=== PATIENT | female | born 1940 | race Caucasian/White ===

== ENCOUNTER → 2018-03-22 12:57 | Outpatient (CLI) | payer MEDICARE, BC, SELFPAY ==
--- NOTE | 2018-03-22 12:59 | XR_ITS ---
XR DEXA axial skeleton HISTORY: ITS.REASON: screening ORDERING PHYSICIAN: Stone Stokes MD PATIENT AGE: 78 years COMPARISON: 01/03/2016 FINDINGS: The BMD measured at the left femoral neck is 0.807 g/cm squared with a T score of -1.7. This is considered Osteopenic according to the World Health Organization criteria. Fracture risk is Moderate. Treatment is advised. Hip density is decreased by 1.6%. L1 L4 density has a T score of 1.9 and has increased by 3.4% IMPRESSION: Osteopenia with moderate fracture risk. Suggest treatment follow-up exam March 2020
== END ==
PROVIDERS: Family Provider Family Medicine; PCP Family Medicine; Visit Provider Obstetrics & Gynecology
DX: Z78.0 Asymptomatic menopausal state (principal)
CPT/HCPCS: 77080

== ENCOUNTER 2020-04-27 10:41 | Emergency (ER) | payer MEDICARE, BC, SELFPAY ==
[2020-04-27 10:42] VITALS: BP 151/80; PULSE 98; RESP 16; TEMP 37.1; O2SAT 98; BMI 24.7
--- NOTE | 2020-04-27 11:10 | XR_ITS ---
PROCEDURE: XR CHEST PORTABLE Patient Age:80Y CLINICAL HISTORY: SYNCOPE Episode nonsmoker COMPARISON: CT LUMBAR SPINE WO CON from 04/27/2020 FINDINGS: AP portable upright CXR but no prior chest studies for comparison Slight coarsening markings at the lung base reflecting atelectasis as well as changes related to likely mild COPD. No convincing pneumonia or acute findings. No lung lesions evident. No pneumothorax. No discrete pleural effusion The heart appears normal to upper normal size. Antonieta and mediastinal structures satisfactory. library monitor leads are in place. Degenerative changes at right AC joint more so than left. Chest wall unremarkable. No acute bony abnormalities. IMPRESSION: Nothing definitely acute Chronic changes along and mild bibasilar atelectasis most likely account slight coarsening markings at lung bases. Heart upper normal in size. Dictated by: Major Vides MD 04/27/2020 15:03 Electronically signed by Major Vides MD in [place] 04/27/2020 15:03
[2020-04-27 11:15] VITALS: BP 157/80; PULSE 64; O2SAT 96
--- NOTE | 2020-04-27 11:25 | ECG_ITS ---
APPROVED REPORT Exam: Resting ECG HR:65 bpm ECG Measurements Heart Rate 65 AXES NH 272 P 53 QRSd 88 QRS -40 QT 448 T 40 QTc 465 <Conclusion> Sinus rhythm with 1st degree AV block Left axis deviation RSR' or QR pattern in V1 suggests right ventricular conduction delay Cannot rule out Anterior infarct, age undetermined Abnormal ECG Electronically signed by : Desmond Austin, 04/27/2020 16:50:22
--- NOTE | 2020-04-27 11:33 | HMH.EDGENADL ---
ED Disposition Clinical Impression: Lumbar disc disease, Near syncope Low back pain Qualifiers: Chronicity: acute Back pain laterality: bilateral Sciatica presence: without sciatica Qualified Code(s): M54.5 - Low back pain Disposition: Home, Self-Care Condition on Discharge: Good Instructions: DI for Syncope in Adults (Fainting), DI for Low Back Pain Additional Instructions: Continue Tylenol for pain. Follow-up with Dr. Clay in the office on Wednesday, call for appointment. Return if symptoms worsen. Referrals: Xavier Clay MD [Primary Care Provider] - - Critical Care Critical Care Time: No Attestation: On 04/27/20, the high probability of a clinically significant, sudden or life threatening deterioration of the following system(s) required my full and direct attention, intervention and personal management. The time I documented below is in addition to time spent performing reported procedures but includes the following listed in this critical care notation. Medical Decision Making - Medical Records Medical records reviewed: Yes: I reviewed the patient's medical records. - Michael Inquiry Pt receiving controlled substance: No Vital Signs: 04/27/20 10:42 04/27/20 11:15 04/27/20 11:40 Temperature 98.7 F Temperature Source Oral Pulse Rate Pulse Rate [Left Radial] 98 H 64 62 Respiratory Rate 16 Blood Pressure Blood Pressure [Right Arm] 151/80 H 157/80 H 155/83 H Blood Pressure Mean [Right Arm] 103 105 107 Blood Pressure Source [Right Arm] Automatic Cuff Automatic Cuff Blood Pressure Position Blood Pressure Position [Right Arm] Sitting Sitting Sitting 02 Sat by Pulse Oximetry 98 96 98 Oxygen Delivery Method Room Air Room Air Room Air 04/27/20 12:50 04/27/20 13:01 04/27/20 16:17 Temperature 98 F Temperature Source Oral Pulse Rate 74 Pulse Rate [Left Radial] 67 68 Respiratory Rate 16 Blood Pressure 123/74 Blood Pressure [Right Arm] 152/81 H 159/80 H Blood Pressure Mean [Right Arm] 104 106 Blood Pressure Source [Right Arm] Automatic Cuff Automatic Cuff Blood Pressure Position Sitting Blood Pressure Position [Right Arm] Sitting Sitting 02 Sat by Pulse Oximetry 95 96 Oxygen Delivery Method Room Air Room Air Room Air - Lab Data Lab results reviewed: Yes: I reviewed the patient's lab results. Lab Results 04/27/20 11:37: WBC 8.8, RBC 4.78, Hgb 15.3, Hct 44.9, MCV 94.0, MCH 32.1 H, MCHC 34.1, RDW 13.8, Plt Count 217, MPV 9.7, Neut % (Auto) 72.5, Lymph % (Auto) 17.6, Keith % (Auto) 7.5, Eos % (Auto) 2.0, Baso % (Auto) 0.6, Neut # (Auto) 6.3, Lymph # (Auto) 1.5, Keith # (Auto) 0.7, Eos # (Auto) 0.2, Baso # (Auto) 0.1 04/27/20 11:37: Sodium 141, Potassium 3.8, Chloride 102, Carbon Dioxide 31 H, Anion Gap 11.8, BUN 18 H, Creatinine 0.70, Estimated Creat Clear 44, Estimated GFR 80, Est GFR ( Amer) 97, Glucose 99, Calcium 8.9, Troponin I < 0.01 Result diagrams: 04/27/20 11:37 04/27/20 11:37 Orders (Tests/Meds): ED MEDICATIONS Discontinued Medications Generic Name Dose Route Start Last Admin Trade Name Freq PRN Reason Stop Dose Admin Acetaminophen 650 mg 04/27/20 13:25 04/27/20 13:55 Acetaminophen 325mg Tab PO 04/27/20 13:26 650 mg ONCE ONE Administration - Radiology Data #1 Image(s): Chest Image Reviewed: Yes I reviewed the patient's radiology image Atelectasis of the bases - CT Data CT Scan: L-Spine Time Received: 14:[address] Reviewed: Yes: I have viewed the radiologist's interpretation Findings Narrative: PROCEDURE: CT LUMBAR SPINE WO CON Patient Age:80Y CLINICAL HISTORY: low back pain COMPARISON: BONE BONE DENSITOMETRY(HIP:LT SPINE from 01/15/2014 BONE3 BONE DENSITOMETRY(HIP:LT SPINE from 01/03/2016 TECHNIQUE: No IV contrast Helical axial images obtained with sagittal and coronal reformats. All CT scans at the facility use one or more dose reduction, viz: automated exposure control,
[2020-04-27 11:40] VITALS: BP 155/83; PULSE 62; O2SAT 98
[2020-04-27 11:46] LABS: Basophils # 0.1 K/mm3 (0-0.2); Basophils % 0.6 % (0.1-2.0); Eosinophils # 0.2 K/mm3 (0.0-0.4); Hematocrit 44.9 % (37.0-47.0); Hemoglobin 15.3 g/dL (12.2-16.2); Lymphocytes # 1.5 K/mm3 (0.7-4.5); Lymphocytes % 17.6 % (10-50); Mean Corpuscular HGB Conc 34.1 g/dL (31.8-35.4); Mean Corpuscular Hemoglobin 32.1 pg (27.0-31.2); Mean Platelet Volume 9.7 fl (7.4-10.4); Monocytes # 0.7 K/mm3 (0.1-1.0); Monocytes % 7.5 % (1.7-9.3); Neutrophils # 6.3 K/mm3 (1.8-7.8); Neutrophils % 72.5 % (37.0-80.0); Platelet Count 217 K/mm3 (142-424); Red Blood Count 4.78 M/mm3 (4.20-5.40); Red Cell Distribution Width 13.8 % (11.5-17.5); White Blood Count 8.8 K/mm3 (4.8-10.8)
[2020-04-27 11:51] LABS: Chloride 102 mmol/L (98-107); Potassium 3.8 mmoL/L (3.5-5.1); Sodium 141 mmol/L (136-145)
[2020-04-27 11:54] LABS: Anion Gap 11.8 mEq/L (5-15); Blood Urea Nitrogen 18 mg/dl (7-17); Carbon Dioxide 31 mmol/L (22.0-30.0); Creatinine Clearance Estimated 44 mL/min (50-200); Estimated Glomerular Filt Rate 80 ml/min (>60); GFR (African American) 97 ML/MIN (>60)
[2020-04-27 11:55] LABS: Calcium 8.9 mg/dl (8.4-10.2); Glucose 99 mg/dl (74-100)
[2020-04-27 12:08] LABS: Troponin I < 0.01 ng/ml (0.00-0.034)
--- NOTE | 2020-04-27 12:47 | CT_ITS ---
PROCEDURE: CT LUMBAR SPINE WO CON Patient Age:80Y CLINICAL HISTORY: low back pain COMPARISON: BONE BONE DENSITOMETRY(HIP:LT SPINE from 01/15/2014 BONE3 BONE DENSITOMETRY(HIP:LT SPINE from 01/03/2016 TECHNIQUE: No IV contrast Helical axial images obtained with sagittal and coronal reformats. All CT scans at the facility use one or more dose reduction, viz: automated exposure control, ma/kV adjustment per patient size (including targeted exams where dose is matched to indication, i.e. head), or iterative reconstruction technique. The FINDINGS: Scanning begins at the at the T12 level. T12/L1 disc intact. L1/L2. Disc intact with only trace scant disc bulge to the left and right L2 vertebra. Some minimal Schmorl's node formation inferior endplate L2 particularly noted posteriorly and anteriorly. L2/3. Degenerative disc space narrowing with disc bulge most the evident towards foramen left greater than right. Mild foraminal encroachment. Borderline central canal stenosis L3 vertebra: Prominent superior endplate Schmorl's node concavity. With ring of sclerotic changes superior endplate defect. This is seen midline and just to the right of midline at the central vertebra the it spans up to 3 cm transverse and with over 8 mm focal concavity. Age indeterminate but appearance and sclerosis could reflect a recent Schmorl's node event from recent herniation of disc through superior endplate into the superior vertebra L3. It does not appear acute. MR lumbar spine preferably with without contrast suggested to further evaluate if pain persist L3/4 but diffuse disc bulge most evident at foramen. Mild bilateral foraminal encroachment moderate facet arthropathy/hypertrophy features slightly narrow the spinal canal. With borderline/mild the spinal stenosis L4/5 mild degenerative disc space narrowing.. Moderate facet hypertrophy along with diffuse disc bulge yields mild bilateral foraminal encroachment. Borderline/mild central canal stenosis L5/S1 disc intact but with generous facet hypertrophy bilaterally Cholecystectomy noted. Partially imaged medial aspect of kidneys unremarkable. Diffuse atherosclerotic calcification aorta but no aneurysm.. Fatty changes liver IMPRESSION: 1.The prominent superior endplate concavity at L3 vertebra, reflecting prominent Schmorl's node (intravertebral disc herniation). Age indeterminate... This however could be recent with wide rim of sclerosis seen surrounding this area. Doubt but cannot identify any definite acute component by CT However if pain persist I would recommend MRI lumbar Spine with and without contrast to further evaluate 2. Degenerative changes elsewhere lumbar spine Mild disc space narrowing and disc bulge along with generous facet hypertrophy-a yield borderline central canal stenosis at L3/4, L4/5, L2/3. (Most prominent facet hypertrophy at L5/S1 followed by L4/5 and less evident L3/4 and above) Dictated by: Major Vides MD 04/27/2020 13:50 Electronically signed by Major Vides MD in [place] 04/27/2020 13:50
[2020-04-27 12:50] VITALS: BP 152/81; PULSE 67; O2SAT 95
[2020-04-27 13:01] VITALS: BP 159/80; PULSE 68; O2SAT 96
[2020-04-27 16:17] VITALS: BP 123/74; PULSE 74; RESP 16; TEMP 36.6; O2SAT 98
== END 2020-04-27 16:18 | disposition home or self-care (01) ==
PROVIDERS: Emergency Provider Emergency Medicine; PCP Family Medicine
DX: R55 Syncope and collapse (principal); M51.9 Unspecified thoracic, thoracolumbar and lumbosacral intervertebral disc disorder; W18.11XA Fall from or off toilet without subsequent striking against object, initial encounter; Y92.012 Bathroom of single-family (private) house as the place of occurrence of the external cause; Z88.1 Allergy status to other antibiotic agents; Z88.2 Allergy status to sulfonamides
CPT/HCPCS: 71045; 72131; 80048; 84484; 85025; 93005; 99284

== ENCOUNTER → 2020-05-15 13:21 | Outpatient (CLI) | payer MEDICARE, BC, SELFPAY ==
--- NOTE | 2020-05-15 13:24 | XR_ITS ---
PROCEDURE: XR DEXA AXIAL SKELETON CLINICAL HISTORY: OSTEOPENIA COMPARISON: CR DEXAAX XR DEXA axial skeleton from 03/22/2018 FINDINGS: The right hip BMD is 0.659 with a t-score of -1.7. The left hip BMD is 0.697 with a t-score of -1.4. The lumbar spine BMD is 1.200 with a t-score of 1.4. Previously L1-L4 density has a T-score 1.9, left femoral neck density at a T-score -1.7, and right femoral neck density has a T-score -1.5. IMPRESSION: Osteopenia with moderate fracture risk. Treatment advised. Dictated b Aristides Delarosa MD 05/16/2020 10:45 Aristides Delarosa MD in [place] 05/16/2020 10:45
== END ==
PROVIDERS: PCP Family Medicine; Visit Provider Family Medicine
DX: M85.89 Other specified disorders of bone density and structure, multiple sites (principal)
CPT/HCPCS: 77080

== ENCOUNTER → 2022-05-18 08:44 | Outpatient (CLI) | payer MEDICARE, SELFPAY ==
--- NOTE | 2022-05-18 08:51 | XR_ITS ---
FINAL REPORT TECHNIQUE: Bone mineral density was calculated of the lumbar spine and hip. CLINICAL HISTORY: .osteopenia, patient has prior , please compare COMPARISON: May 15, 2020 FINDINGS: DEXA BONE DENSITY AXIAL SKELETON Using L1-4, the bone mineral density of the spine is 1.184 g/cm2, corresponding to T-score of 1.2. Previously measured 1.200 g/cm2 corresponding to a T-score of 1.4. Note that these values may be falsely elevated secondary to hypertrophic change. Using the right hip, the bone mineral density of the femoral neck is 0.668 g/cm2, corresponding to a T-score of -1.6. Previously measured 0.659 g/cm2, corresponding to a T-score of -1.7. NOTE: T-score: Standard deviation compared with peak bone mass of young adult mean. *Following the recommendations of the International Society of Bone densitometry, classification of hip BMD is based on the lower of two T-scores; total hip or femoral neck. IMPRESSION: Diminished bone mineral density of the lumbar spine and right hip consistent with osteopenia, not significantly changed. Reviewed, Interpreted and Dictated by Angel Ribeiro III, MD Transcribed by Edwige Hobbs Authenticated and [facility]
== END ==
PROVIDERS: PCP Family Medicine; Visit Provider Family Medicine
DX: M85.89 Other specified disorders of bone density and structure, multiple sites (principal)
CPT/HCPCS: 77080

== ENCOUNTER 2022-06-03 09:51 | Emergency (ER) | payer MEDICARE, SELFPAY ==
[2022-06-03] VITALS (17 sets, daily range): BP systolic 122–163; BP diastolic 65–92; PULSE 62–109; RESP 15–18; TEMP 36.8–36.9; O2SAT 94–99; BMI 24.7
--- NOTE | 2022-06-03 10:48 | PC.NURSE ---
rounded on pt. Asked pt if she had any needs. Pt stated she had no needs at this time.
--- NOTE | 2022-06-03 10:50 | XR_ITS ---
FINAL REPORT CLINICAL HISTORY: syncope, fall COMPARISON: 04/27/2020 FINDINGS: SINGLE-VIEW CHEST The heart size is normal. The mediastinum is normal. There are mild chronic changes at the bases. The lungs are otherwise clear. There is no pneumothorax. IMPRESSION: No acute cardiopulmonary process. Reviewed, Interpreted and Dictated by Zheng Schmidt MD Transcribed by Laura Ford Authenticated and [facility]
--- NOTE | 2022-06-03 10:50 | PC.NURSE ---
IV established and blood sent to the lab
--- NOTE | 2022-06-03 10:51 | PC.NURSE ---
rad notified of Ct and XR order. written CT order
--- NOTE | 2022-06-03 12:10 | CT_ITS ---
PROCEDURE INFORMATION: Exam: CT Head Without Contrast Exam date and time: 06/03/2022 10:59 AM Age: 82 years old Clinical indication: Syncope and collapse; Patient HX: Syncope/fall TECHNIQUE: Imaging protocol: Computed tomography of the head without contrast. Radiation optimization: All CT scans at this facility use at least one of these dose optimization techniques: automated exposure control; mA and/or kV adjustment per patient size (includes targeted exams where dose is matched to clinical indication); or iterative reconstruction. COMPARISON: No relevant prior studies available. FINDINGS: Brain: Extensive hypodensity is seen in the periventricular cerebral white matter. This change is nonspecific but is most likely secondary to chronic ischemia within microvascular distributions. No other intra or extra-axial masses, lesions or collections. Frederick white matter distinction is maintained throughout the brain. No radiographic evidence of intracranial hemorrhage. No radiographic evidence of acute intracranial pathology. Cerebral ventricles: Ventricles are enlarged on the basis of mild diffuse cerebral volume loss. Paranasal sinuses: Visualized sinuses are unremarkable. No fluid levels. Mastoid air cells: Visualized mastoid air cells are well aerated. Bones/joints: Unremarkable. No acute fracture. Soft tissues: Soft tissue scalp contusion in the left periorbital region/frontal region IMPRESSION: No radiographic evidence of acute intracranial pathology. Extensive small vessel ischemic changes. Consider MRI if indicated.
[2022-06-03 12:16] LABS: Basophils # 0.1 K/mm3 (0-0.2); Basophils % 0.6 % (0.1-2.0); Eosinophils # 0.1 K/mm3 (0.0-0.4); Hematocrit 45.2 % (37.0-47.0); Hemoglobin 14.5 g/dL (12.2-16.2); Mean Corpuscular Hemoglobin 30.8 pg (27.0-31.2); Mean Corpuscular Volume 96.2 fl (81-99); Mean Platelet Volume 10.1 fl (7.4-10.4); Monocytes # 0.7 K/mm3 (0.1-1.0); Monocytes % 7.4 % (1.7-9.3); Neutrophils # 7.9 K/mm3 (1.8-7.8); Platelet Count 250 K/mm3 (142-424); Red Cell Distribution Width 13.7 % (11.5-17.5); White Blood Count 9.7 K/mm3 (4.8-10.8)
[2022-06-03 12:20] LABS: Alanine Aminotransferase 32 U/L (12-78); Albumin/Globulin Ratio 1.4 (1.1-1.8); Alkaline Phosphatase 83 U/L (38-126); Anion Gap 7.1 mEq/L (5-15); Aspartate Amino Transferase 35 U/L (14-36); Bilirubin,Total 0.2 mg/dl (0.2-1.3); Blood Urea Nitrogen 14 mg/dl (7-17); Calcium 9.2 mg/dl (8.4-10.2); Carbon Dioxide 31 mmol/L (22.0-30.0); Chloride 105 mmol/L (98-107); Creatinine Clearance Estimated 43 mL/min (50-200); Estimated Glomerular Filt Rate 69 ml/min (>60); GFR (African American) 83 ML/MIN (>60); Globulin 2.9 g/dL (1.3-3.2); Glucose 109 mg/dl (74-100); Potassium 4.1 mmoL/L (3.5-5.1); Sodium 139 mmol/L (136-145); Total Protein,Serum 6.9 g/dl (6.3-8.2)
--- NOTE | 2022-06-03 12:25 | PC.NURSE ---
pt assisted with ambulation to the bathroom
--- NOTE | 2022-06-03 12:28 | PC.NURSE ---
UA sent to the lab
[2022-06-03 12:31] LABS: Microscopic, Urine URINE MICROSCOPIC (MICROSCOPIC)
[2022-06-03 12:33] LABS: Appearance,Urine SL CLOUDY (Clear); Bilirubin,Urine Negative (Negative); Blood, Urine Negative (Negative); Color,Urine YELLOW (Yellow); Glucose,Urine (UA) Negative (Negative); Ketones,Urine Negative (Negative); Leukocyte Esterase,Urine 1+ (Negative); Nitrate,Urine Negative (Negative); Protein,Urine Negative (Negative); Specific Gravity, Urine 1.025 (1.005-1.030); Urobilinogen,Urine 0.2 EU/dl (0.2)
[2022-06-03 12:46] LABS: Bacteria,Urine Trace /lpf
--- NOTE | 2022-06-03 12:57 | PC.NURSE ---
called radiology to check on status of radiology results spoke with halima-states chart is locked on chest xray states she is faxing vrad report down on head CT
--- NOTE | 2022-06-03 13:43 | HMH.EDGENADL ---
Discharge Plan Disposition Patient Disposition: Home, Self-Care Condition: Good Chief Complaint: Fall Prescriptions Prescriptions: No Action calcium carbonate-vit D3-min 600 mg calcium- 400 unit tablet 1 tab PO BID [id number]-FA-lutein [Centrum Silver Women] 8 mg iron-400 mcg-300 mcg tablet 1 tab PO DAILY melatonin 5 mg capsule 5 mg PO QHS raloxifene 60 mg tablet 60 mg PO DAILY Qty: 90 3RF estradiol 1 mg tablet See Rx Instructions .ROUTE .COMPLEX Qty: 90 0RF Dose Instruction: TAKE 1 TABLET EVERY DAY Rx Instructions: TAKE 1 TABLET EVERY DAY Referrals Referrals: Xavier Clay MD [Primary Care Provider] - Enter time for follow up Activity Restrictions/Add. Instructions Additional Instructions/Restrictions: Follow-up with primary care provider, call for appointment. Clinical Impressions Clinical Impression: Contusion of face, Syncope and collapse Instructions Patient Instructions: DI for Syncope in Adults (Fainting), How to Prevent Falls, DI for Closed Head Injury Discharge ED Provider: Zach Christy General Adult [facility] General Chief complaint: Fall Stated complaint: AO fall 06/03/22 hit head Time Seen by Provider: 06/03/22 13:42 Mode of Arrival: Ambulatory Source of Information: Patient Limitations: No Limitations Description of Symptoms (Recalled from ER Triage Doc. by RN): pt to ed c/o fall. pt states she has been falling frequently over a year since her huband . pt states she fell today in her home and hit her head. brusing noted above left eyebrow. pt denies taking any blood thinners. History of Present Illness HPI narrative: Patient complains of a fall with an injury to her head. States that she was on the toilet this morning got some mild crampy lower abdominal pain, thinks that she passed out for second and fell hitting her head on the tile floor. She has some bruising around her left eye. Denies any other injuries except a small bruise on her right hand. She says this has happened to her for 5 times since her a couple of years ago. She says that it always happens when she sits on the toilet to have a bowel movement and is generally accompanied by crampy lower abdominal pain. She has not seen her primary care doctor for the symptoms. Episodes are not associated with chest pain, shortness of breath, or palpitations. Related Data Home Medications Medication Instructions Recorded Confirmed calcium carb-vit D3-minerals 600 1 tab PO BID 01/20/18 01/27/19 mg calcium-400 unit tablet melatonin 5 mg capsule 5 mg PO QHS 01/20/18 01/27/19 multivit with 1 tab PO DAILY 01/20/18 01/27/19 [id number]-bkkg-MH-lutein 8 mg iron-400 mcg-300 mcg tablet (Centrum Silver Women) Previous Rx's Medication Instructions Recorded raloxifene 60 mg tablet 60 mg PO DAILY #90 tabs 05/23/19 estradiol 1 mg tablet See Rx Instructions .Route 02/29/20 .COMPLEX #90 tabs Allergies Allergy/AdvReac Type Severity Reaction Status Date / Time adhesive tape Allergy Verified 01/27/19 10:23 ampicillin Allergy rash,hives Verified 01/27/19 10:23 erythromycin base Allergy Rash, hives Verified 01/27/19 10:23 neomycin Allergy Hives, rash Verified 01/27/19 10:23 Sulfa (Sulfonamide Allergy Rash Verified 01/27/19 10:23 Antibiotics) PFSH PFSH Social History Smoking Status: Never smoker alcohol intake: current substance use type: denies use current occupational status: other household members: other housing: other ROS Obtained: Yes Systems reviewed as appropriate & no additional complaints except as documented Constitutional Constitutional: Denies fever(s) Eyes Eyes: Denies change in vision Cardiovascular Cardiovascular: Denies chest pain, Denies irregular heart rhythm, Denies palpitations and Reports syncope Respiratory Respiratory: Denies shortness of breath Gastrointestinal Gastrointestingal: Reports cr
--- NOTE | 2022-06-03 14:00 | ECG_ITS ---
APPROVED REPORT Exam: Resting ECG HR:71 bpm ECG Measurements Heart Rate 71 AXES WA 281 P 53 QRSd 93 QRS -46 QT 423 T 57 QTc 445 Conclusion SINUS RHYTHM WITH FIRST DEGREE AV BLOCK PATTERN CONSISTENT WITH PULMONARY DISEASE POSSIBLE RIGHT VENTRICULAR CONDUCTION DELAY [RSR (QR) IN V1/V2] LEFT ANTERIOR FASCICULAR BLOCK [QRS AXIS <= -45, QR IN I, RS IN II] ABNORMAL ECG UNCONFIRMED REPORT Electronically signed by : Desmond Austin MD 06/06/2022 08:12:11
== END 2022-06-03 15:58 | disposition home or self-care (01) ==
PROVIDERS: Emergency Provider Emergency Medicine; PCP Family Medicine
DX: R55 Syncope and collapse (principal); S00.12XA Contusion of left eyelid and periocular area, initial encounter; W18.30XA Fall on same level, unspecified, initial encounter; Y92.012 Bathroom of single-family (private) house as the place of occurrence of the external cause
CPT/HCPCS: 70450; 71045; 80053; 81001; 85025; 87086; 93005; 99285

== ENCOUNTER → 2022-06-22 15:18 | Outpatient (CLI) | payer MEDICARE, SELFPAY | PROVIDERS: PCP Family Medicine; Visit Provider Family Medicine | DX: R55 Syncope and collapse (principal) | CPT/HCPCS: 93225; 93226 ==

== ENCOUNTER → 2022-06-30 14:26 | Outpatient (CLI) | payer MEDICARE, SELFPAY ==
--- NOTE | 2022-06-30 15:03 | XR_ITS ---
FINAL REPORT CLINICAL HISTORY: CONTUSION OF LT KNEE; fall FINDINGS: 3 views of the right knee were obtained. There is no acute fracture or dislocation. There is a small osteophyte along the superior patella. The joint spaces are intact. There is no soft tissue abnormality. IMPRESSION: No acute process. Reviewed, Interpreted and Dictated by Zheng Schmidt MD Transcribed by Juan Damian Authenticated and [facility]
== END ==
PROVIDERS: PCP Family Medicine; Visit Provider Family Medicine
DX: M25.562 Pain in left knee (principal); S80.02XA Contusion of left knee, initial encounter
CPT/HCPCS: 73562

== ENCOUNTER 2022-08-20 14:00 | Outpatient (RCR) | payer MEDICARE, SELFPAY ==
--- NOTE | 2022-07-08 11:37 | HMH.PTOPEV ---
PT Outpatient Evaluation Rehab PT Outpatient Evaluation Start: 07/08/22 11:18 Freq: Status: Active Protocol: Document 07/08/22 11:18 YARELY (Rec: 07/08/22 11:36 YARELY [id number]) E-signed By Dominick Barillas, PT Outpatient Therapy Subjective History Subjective History Pt reports acute onset left knee with fall in bathroom at home on 06/03/22. Pt reports ' fainting', falling forward, hitting face, and having left kne soreness. Pt reports left knee has progressively worsened since injury, exacerbated with 'bumping it' a couple weeks ago. Pt reports mostly anterior left knee pain in origin, with intermittent episodes of clicking and weakness. Chief Complaint Pain,Stiff,Swelling,Weakness Symptom Type Ache,Throb,Dull Symptoms Relieved By Rest/Positioning,Heat,Ice Symptoms Aggravated By Sitting,Twisting,Walking Prior Functional Limitations None Current Functional Limitations Housework,Sleeping,Standing, Walking,Stairs Symptom Description Intermittent Level of pain today (0-10) 0 Pain scale - at its best (0-10) 0 Pain scale - at its worst (0-10) 5 Hip/Knee Eval Gait Observation General Gait Pattern Observation Antalgic Gait Assistive Device Assistive Devices None / NA Palpation Tenderness left Knee Palpation Finding Tenderness Knee Palpation Overall Comment 3/4 medial jt line, 1-2/4 lateral jt line MMT Hip Flexion Strength Grade 4- Good- Hip Abduction Strength Grade 4- Good- Hip Adduction Strength Grade 3+ Fair+ Hip Extension Strength Grade 4- Good- Hip External Rotation Strength Grade 4- Good- Hip Internal Rotation Strength Grade 4- Good- Knee Extension Strength Grade 4 Good Knee Flexion Strength Grade 4 Good ROM Knee Flexion Active Range of Motion ( 0-135 degrees) Effusion joint effusion knee exam standard left Mid - Patellar Circumerential Measure ( 38 cm) Special Tests Knee Valgus Stress Test Negative Left Knee Sancho Test Positive Left Patella Apprehension Test Negative Left Patellar Grind Test Negative Left Patellar Compression Test Negative Left Outpatient Therapy Assessment Impairments Problems/Impairmments Palpation Tenderness,Impaired Range of Mo
--- NOTE | 2022-08-12 15:29 | HMH.RHREAS ---
Rehab Reassessment Rehab OP Re-assessment Start: 08/12/22 15:20 Freq: Status: Active Protocol: Document 08/12/22 15:21 YARELY (Rec: 08/12/22 15:29 YARELY [id number]) E-signed By Dominick Barillas, PT Rehab Re-assessment Subjective Subjective Pt reports potentially 'over doing it' w/household activity one day last week, and now reports 4/10 medial aspect left knee pain on VAS, however , reports feeling 90% better overall since I eval Objective Objective Notes AROM: LEFT KNEE FLX 0-135 MMT: LEFT KNEE FLX 4+/5, L KNEE EXT 5/5, L HIP ABD 4/5, L HIP FLX 4-4+/5, L HIP ADD 4-4 +/5 TTP: LEFT KNEE MEDIAL JT LINE 0-1/4, LEFT KNEE PES ANSERINE 1-2/4, L KNEE LATERAL JT LINE 0/4 GAIT: WFL ON LEVEL TERRAIN Assessment Progress Assessment Progressing as Expected Assessment Notes SIGNIFICANT IMPROVEMENT IN STRENGTH, TTP, AND GAIT Patient goals met STG'S 05/20 LTG'S 02/15 Goals Not Met STG'S 11/20, LTG'S 12/16 Plan Plan Pt to continue w/skilled P.T. to make further improvements in strength, TTP, and gait to alllow for optimal function Frequency of Therapy 1-2x/wk Duration of therapy 2-4wks Time and Billing Re-Eval Time 12 Re-Eval Billing Units 1 PHYSICIAN CERTIFICATION: I certify the specified therapy services for Lois Neely are required, authorized, and reviewed every 30 days.
== END 2022-08-20 14:05 | disposition home or self-care (01) ==
LOC: PT 14:00
PROVIDERS: PCP Family Medicine; Visit Provider Family Medicine
DX: S83.92XA Sprain of unspecified site of left knee, initial encounter (principal); M25.562 Pain in left knee
CPT/HCPCS: 97010; 97014; 97110; 97163; 97164; G0283

== ENCOUNTER 2022-12-09 14:00 | Outpatient (RCR) | payer MEDICARE, SELFPAY ==
--- NOTE | 2022-11-20 13:57 | HMH.PTOPEV ---
PT Outpatient Evaluation Rehab PT Outpatient Evaluation Start: 11/20/22 13:30 Freq: Status: Active Protocol: Document 11/20/22 13:31 LETICIA (Rec: 11/20/22 13:56 LETICIA [id number]) E-signed By Blaine Villarreal, PT Outpatient Therapy Subjective History Subjective History Patient is an 82 year old female presenting to outpatient PT with reports of L knee pain as a result of a fall at home on 06/02/22. Most recent imaging negative for any fractures. No other comorbidities to report. Chief Complaint Pain,Clicks,Gives out/Unstable Symptom Type Sharp Symptoms Relieved By Rest/Positioning,Ice,OTC Meds Symptoms Aggravated By Standing,Physical Activity, Walking Prior Functional Limitations None Current Functional Limitations Housework,Sleeping,Walking, Stairs Symptom Description Intermittent Level of pain today (0-10) 1 Pain scale - at its best (0-10) 0 Pain scale - at its worst (0-10) 4 Hip/Knee Eval Gait Observation General Gait Pattern Observation Antalgic Gait,Decrease Weight Bear (L) Assistive Device Assistive Devices None / NA Palpation Tenderness left Knee Palpation Finding Tenderness Knee Palpation Overall Comment Peripatellar tenderness 2/4 MMT Hip Flexion Strength Grade 4- Good- Hip Abduction Strength Grade 4- Good- Hip Adduction Strength Grade 4- Good- Hip Extension Strength Grade 4- Good- Hip External Rotation Strength Grade 4 Good Hip Internal Rotation Strength Grade 4 Good Knee Extension Strength Grade 4 Good Knee Flexion Strength Grade 4 Good ROM Hip ROM Reason Not Measured Within Functional Limits Knee Extension Active Range of Motion ( -7 degrees) Knee Flexion Active Range of Motion ( 92 degrees) Special Tests Knee Anterior Juan Antonio Test Negative Left Knee Valgus Stress Test Negative Left Knee Varus Stress Test Negative Left Knee Sancho Test Negative Left Outpatient Therapy Assessment Impairments Problems/Impairmments Palpation Tenderness,Impaired Range of Motion,Impaired Strength,Impaired Gait Pattern ,Impaired Walking,Impaired Standing,Impaired Household Care,Impaired Stair Climbing, Subjective C/O Pain Prognosis Rehab Potential Good C
== END 2022-12-09 14:05 | disposition home or self-care (01) ==
LOC: PT 14:00
PROVIDERS: PCP Family Medicine; Visit Provider Family Medicine
DX: M25.562 Pain in left knee (principal); S83.92XA Sprain of unspecified site of left knee, initial encounter
CPT/HCPCS: 97010; 97110; 97163; 97530

== ENCOUNTER 2023-08-21 13:11 | Emergency (ER) | payer MEDICARE, SELFPAY ==
[2023-08-21 13:11] VITALS: BP 132/85; PULSE 80; RESP 16; TEMP 36.4; O2SAT 98; BMI 23.0
[2023-08-21 13:14] VITALS: BP 132/85; PULSE 84; RESP 16; O2SAT 97
--- NOTE | 2023-08-21 13:15 | ECG_ITS ---
APPROVED REPORT Exam: Resting ECG HR:80 bpm ECG Measurements Heart Rate 80 AXES IN 260 P 65 QRSd 87 QRS -65 QT 397 T 69 QTc 433 Conclusion SINUS RHYTHM WITH FIRST DEGREE AV BLOCK LOW QRS VOLTAGE IN PRECORDIAL LEADS [QRS DEFLECTION < 1.0 mV IN CHEST LEADS] POSSIBLE RIGHT VENTRICULAR CONDUCTION DELAY [RSR (QR) IN V1/V2] LEFT ANTERIOR FASCICULAR BLOCK [QRS AXIS <= -45, QR IN I, RS IN II] POSSIBLE ANTERIOR MYOCARDIAL INFARCTION , OF INDETERMINATE AGE [30 ms Q WAVE IN V3/V4, OR R < 0.2 mV IN V4] ABNORMAL ECG UNCONFIRMED REPORT Electronically signed by : Desmond Austin MD 08/22/2023 08:40:01
--- NOTE | 2023-08-21 13:25 | CT_ITS ---
PROCEDURE INFORMATION: Exam: CT Cervical Spine Without Contrast Exam date and time: 08/21/2023 2:43 PM Age: 83 years old Clinical indication: Injury or trauma; Fall; Blunt trauma; Additional info: Fall, R scalp lac TECHNIQUE: Imaging protocol: Computed tomography of the cervical spine without contrast. Radiation optimization: All CT scans at this facility use at least one of these dose optimization techniques: automated exposure control; mA and/or kV adjustment per patient size (includes targeted exams where dose is matched to clinical indication); or iterative reconstruction. REPORTING DATA: Count of CT and Cardiac NM exams in prior 12 months: This patient has received 0 known CTs and 0 known cardiac nuclear medicine studies in the 12 months prior to the current study. COMPARISON: CT HEAD/BRAIN WO CON 08/21/2023 2:41 PM FINDINGS: Bones/joints: No acute fracture. Reversal of the normal cervical lordosis. Normal alignment. No significant disc bulge or herniation. No severe spinal canal stenosis. Severe multilevel facet arthropathy with associated foraminal stenosis. Lungs: Lung apices are normal. Soft tissues: Unremarkable. IMPRESSION: No acute findings.
--- NOTE | 2023-08-21 13:25 | CT_ITS ---
PROCEDURE INFORMATION: Exam: CT Head Without Contrast Exam date and time: 08/21/2023 2:41 PM Age: 83 years old Clinical indication: Injury or trauma; Fall; Blunt trauma (contusions or hematomas); Additional info: Fall, right scalp lac TECHNIQUE: Imaging protocol: Computed tomography of the head without contrast. Radiation optimization: All CT scans at this facility use at least one of these dose optimization techniques: automated exposure control; mA and/or kV adjustment per patient size (includes targeted exams where dose is matched to clinical indication); or iterative reconstruction. REPORTING DATA: Count of CT and Cardiac NM exams in prior 12 months: This patient has received 0 known CTs and 0 known cardiac nuclear medicine studies in the 12 months prior to the current study. COMPARISON: CT HEAD/BRAIN WO CON 06/03/2022 10:59 AM FINDINGS: Brain: Central and cortical brain atrophy evident, appropriate for patient age. 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 No acute intracranial hemorrhage. Cerebral ventricles: No ventriculomegaly. Paranasal sinuses: Visualized sinuses are unremarkable. No fluid levels. Mastoid air cells: Visualized mastoid air cells are well aerated. Bones/joints: Unremarkable. No acute fracture. Soft tissues: Small laceration along the right lateral parietal bone. IMPRESSION: No acute intracranial abnormality.
[2023-08-21 13:30] VITALS: BP 134/78; PULSE 75; RESP 16; O2SAT 97
--- NOTE | 2023-08-21 13:30 | [facility].EDGENADL ---
Discharge Plan Disposition Patient Disposition: Home, Self-Care Prescriptions Prescriptions: No Action calcium carbonate-vit D3-min 600 mg calcium- 400 unit tablet 1 tab PO BID [id number]-FA-vit K-lut [Centrum Silver Women] 8 mg iron-400 mcg-300 mcg tablet 1 tab PO DAILY melatonin 5 mg capsule 5 mg PO QHS raloxifene 60 mg tablet 60 mg PO DAILY Qty: 90 3RF estradiol 1 mg tablet See Rx Instructions .ROUTE .COMPLEX Qty: 90 0RF Dose Instruction: TAKE 1 TABLET EVERY DAY Rx Instructions: TAKE 1 TABLET EVERY DAY Referrals Follow up/Referrals: Felisa Poe MD [Primary Care Provider] - See instructions Activity Restrictions/Add. Instructions Additional Instructions/Restrictions: Call your family doctor to establish care for this visit to the emergency department and schedule follow-up within 48 hours to ensure improvement. If you have any worsening of your condition or any other concerning signs or symptoms, return to the emergency department or your primary care doctor for further evaluation. Clinical Impressions Clinical Impression: Syncope, vasovagal, Laceration of scalp Instructions Patient Instructions: DI for Syncope in Adults (Fainting), DI for Syncope in Children (Fainting) Discharge ED Provider: Bernardo Mayers General Adult HPI General Chief complaint: Syncope Stated complaint: Syncope Time Seen by Provider: 08/21/23 13:14 Mode of Arrival: Wheelchair Source of Information: Patient Limitations: No Limitations Description of Symptoms (Recalled from ER Triage Doc. by RN): Presents to ED after a syncopal episode that occured at home when she stood up from the toilet and felt very lightheaded. +LOC +hit head. Small 1 inch laceration to the right side of her head. Bleeding controlled [employer]. -blood thinner. History of Present Illness HPI narrative: 83-year-old female history of hypertension, syncopal episodes presenting with syncope. Patient states that she was in her bathroom, had a bowel movement, stood up after having bowel movement and then exiting she remembers, she woke up on the floor. Brought to the emergency department because she hit her head and noted blood on the scene. Denies headache, vision changes, neurologic deficits at this time. Is having neck pain, but does not think it is any different than her normal neck pain. No chest pain, shortness of breath, diaphoresis, or any other concerns. Related Data Home Medications Medication Instructions Recorded Confirmed calcium carb-vit D3-minerals 600 1 tab PO BID 01/20/18 01/27/19 mg calcium-400 unit tablet melatonin 5 mg capsule 5 mg PO QHS 01/20/18 01/27/19 [id number] 8 mg-folic 400 1 tab PO DAILY 01/20/18 01/27/19 mcg-K 50 mcg-lutein 300 mcg tablet (Centrum Silver Women) Previous Rx's Medication Instructions Recorded raloxifene 60 mg tablet 60 mg PO DAILY #90 tabs 05/23/19 estradiol 1 mg tablet See Rx Instructions .Route 02/29/20 .COMPLEX #90 tabs Allergies Allergy/AdvReac Type Severity Reaction Status Date / Time adhesive tape Allergy Verified 01/27/19 10:23 ampicillin Allergy rash,hives Verified 01/27/19 10:23 erythromycin base Allergy Rash, hives Verified 01/27/19 10:23 neomycin Allergy Hives, rash Verified 01/27/19 10:23 Sulfa (Sulfonamide Allergy Rash Verified 01/27/19 10:23 Antibiotics) [facility] Disclaimer: The information contained in this section may have been updated after the patient was seen, as this information can be updated by other users. Social History (Updated 06/03/22 @ 21:17 by Zach Christy MD) Smoking Status: Never smoker alcohol intake: current substance use type: denies use current occupational status: other Travel in the last 8 weeks: None household members: other housing: other ROS Obtained: Yes All systems reviewed & no additional complaints except as documented Physical Exam General General appe
[2023-08-21 13:33] LABS: Basophils # 0.1 K/mm3 (0-0.2); Basophils % 0.6 % (0.1-2.0); Eosinophils # 0.1 K/mm3 (0.0-0.4); Hematocrit 44.3 % (37.0-47.0); Lymphocytes # 1.7 K/mm3 (0.7-4.5); Lymphocytes % 20.9 % (10-50); Mean Corpuscular HGB Conc 33.9 g/dL (31.8-35.4); Mean Corpuscular Hemoglobin 32.1 pg (27.0-31.2); Mean Corpuscular Volume 94.5 fl (81-99); Mean Platelet Volume 9.2 fl (7.4-10.4); Monocytes # 0.6 K/mm3 (0.1-1.0); Monocytes % 7.2 % (1.7-9.3); Neutrophils # 5.8 K/mm3 (1.8-7.8); Neutrophils % 70.4 % (37.0-80.0); Platelet Count 246 K/mm3 (142-424); Red Blood Count 4.69 M/mm3 (4.20-5.40); Red Cell Distribution Width 13.7 % (11.5-17.5); White Blood Count 8.2 K/mm3 (4.8-10.8)
[2023-08-21 13:34] LABS: Chloride 101 mmol/L (98-107); Sodium 139 mmol/L (136-145)
[2023-08-21 13:35] LABS: Potassium 3.6 mmoL/L (3.5-5.1)
[2023-08-21 13:37] LABS: Alanine Aminotransferase 28 U/L (12-78); Alkaline Phosphatase 63 U/L (38-126); Aspartate Amino Transferase 36 U/L (14-36); Bilirubin,Total 0.6 mg/dl (0.2-1.3); Blood Urea Nitrogen 25 mg/dl (7-17); Creatinine Clearance Estimated 39 mL/min (50-200); Estimated Glomerular Filt Rate 60 ml/min (>60); GFR (African American) 72 ML/MIN (>60)
[2023-08-21 13:38] LABS: Albumin Level 4.5 g/dl (3.5-5.0); Albumin/Globulin Ratio 1.5 (1.1-1.8); Anion Gap 9.6 mEq/L (5-15); Carbon Dioxide 32 mmol/L (22.0-30.0); Globulin 3.1 g/dL (1.3-3.2); Total Protein,Serum 7.6 g/dl (6.3-8.2)
[2023-08-21 13:52] LABS: Troponin I < 0.01 ng/ml (0.00-0.034)
[2023-08-21 14:00] VITALS: BP 139/73; PULSE 69; RESP 17; O2SAT 96
[2023-08-21 14:30] VITALS: BP 145/72; PULSE 72; RESP 14; O2SAT 96
[2023-08-21 14:42] LABS: Calcium 9.2 mg/dl (8.4-10.2); Glucose 163 mg/dl (74-100)
[2023-08-21 14:51] VITALS: BP 145/72; PULSE 72; RESP 14; TEMP 36.4; O2SAT 96
--- NOTE | 2023-08-21 14:54 | PC.NURSE ---
Discharge instructions provided and discussed with patient with no further questions. Instructed patient that brittanie need to be remoeved in 10-14 days. Patient wheeled out to family vehicle no distress noted at this time
== END 2023-08-21 14:52 | disposition home or self-care (01) ==
PROVIDERS: Emergency Provider Emergency Medicine; PCP Family Medicine
DX: R55 Syncope and collapse (principal); S01.01XA Laceration without foreign body of scalp, initial encounter; I10 Essential (primary) hypertension; W19.XXXA Unspecified fall, initial encounter
CPT/HCPCS: 12002; 70450; 72125; 80053; 84484; 85025; 93005; 99285

== ENCOUNTER 2023-09-03 11:27 | Emergency (ER) | payer MEDICARE, SELFPAY ==
[2023-09-03 11:41] VITALS: BP 120/86; PULSE 104; RESP 16; TEMP 36.7; O2SAT 95; BMI 24.4
[2023-09-03 11:44] VITALS: BP 120/86; PULSE 104; RESP 16; TEMP 36.7
== END 2023-09-03 11:47 | disposition home or self-care (01) ==
PROVIDERS: Emergency Provider Emergency Medicine
DX: Z48.02 Encounter for removal of sutures (principal); S01.01XA Laceration without foreign body of scalp, initial encounter; W19.XXXA Unspecified fall, initial encounter
CPT/HCPCS: 99281